=== PATIENT | female | born 1935 | race Caucasian/White ===

== ENCOUNTER → 2016-08-17 | Outpatient (CLI) | payer MEDICARE, BC ==
--- NOTE | 2016-08-17 14:31 | MR ---
EXAMINATION: MRI lumbar spine HISTORY: Radiculopathy COMPARISON: None TECHNIQUE: Multiplanar and multisequence images obtained through the lumbar spine without contrast. FINDINGS: There is a moderate to severe compression deformity at L3 with approximately 75% vertebral body height loss with mild retropulsion of fragments, this is likely chronic. There is an acute emir earing moderate compression deformity at L4 with internal edema and approximately 50-60% vertebral b anthony height loss. This also demonstrates mild retropulsion of fragments. The remaining vertebral body heights appear grossly maintained. The distal spinal cord appears normal and the conus terminates a t L2. The SI joints are symmetric. The visualized retroperitoneal structures appear normal. T12-L1: Unremarkable. L1-L2: Grossly unremarkable. L2-L3: Small diffuse disc bulge with facet and ligamentum flavum hypertrophy resulting in mild spina l canal stenosis. Moderate to severe right and mild left neural foraminal stenosis. L3-L4: No significant disc bulge. Moderate stenosis from retropulsion at L3. Severe right and mild l eft neural foraminal stenosis. L4-L5: Mild spinal canal stenosis secondary to retropulsion at L4. No significant disc bulge. Severe bilateral neural foraminal stenosis. L5-S1: No significant disc bulge. Moderate bilateral neural foraminal stenosis. IMPRESSION: 1. Acute appearing moderate to severe compression deformity at L4, chronic appearing severe compress ion deformity of L3, both demonstrating mild retropulsion. 2. 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
== END | disposition home or self-care (01) ==
LOC: MW.MRI 09:55
PROVIDERS: ATTEND Physician Assistant
DX: M54.16 Radiculopathy, lumbar region (principal); M51.36 Other intervertebral disc degeneration, lumbar region
CPT/HCPCS: 72148; 72148-26